=== PATIENT | female | born 1985 | race Caucasian/White ===

== ENCOUNTER 2018-03-28 01:46 | Inpatient (IN) | payer BC ==
[~2018-03-28] VITALS: Ht 152.4 cm; Wt 53.7 kg
[~2018-03-28 01:46] MED LIST: AUGMENTIN PO; BENADRYL25 M2 PO; CEPHALEXIN500 M1 PO; CLEOCIN HCL300 MG PO; LEVAQUIN 5500 MG/TA1 PO; PREDNISONE20 MG PO; PRENATAL VITA1 UDTAB PO; PROAIR HFA0.09 MG/AC IH; PROTONIX 40MG T40 MG PO; SINGULAIR 110 MG/TAB PO; VENTOLIN0.09 MG IH; ZITHROMAX500 M2 PO; ZYRTEC 10MG10 MG PO; ZYRTEC5 MG PO
[2018-03-28] MEDS ORDERED: SOMA 350MG350 MG/TAB PO (02:10)
[2018-03-28 03:10] LABS: BASO % 0.1 % (0.0-2.0); EOS % 0.1 % (0-4.0); GRAN # 16.2 (1.4-6.5); GRAN % 93.2 % (42.2-75.2); HEMATOCRIT 40.7 % (37.0-47.0); HEMOGLOBIN 14.3 g/dl (12.5-16.0); LYMPH # 0.7 (1.2-3.4); LYMPH % 4.2 % (20.0-51.0); MEAN CELL VOLUME 83 fl (80.0-100.0); MEAN CORPUSCULAR HEMOGLOBIN 29 pg (27.0-31.0); MEAN CORPUSCULAR HGB CONC 35 g/dl (33.0-37.0); MEAN PLATELET VOLUME 9.6 fl (7.4-10.4); MONO # 0.4 (0.1-0.6); MONO % 2.2 % (1.7-9.3); PLATELET COUNT 234 K/mm3 (130-400); RED BLOOD COUNT 4.88 M/mm3 (4.10-5.30); REDCELL DISTRIBUTION WIDTH-CV 11.9 % (11.5-14.5)
[2018-03-28 03:23] LABS: ALANINE AMINOTRANSFERASE 30 U/L (9-52); ALBUMIN 4.3 gm/dL (3.5-5.0); ALKALINE PHOSPHATASE 113 U/L (50-136); ANION GAP 15 mmol/L (7-16); AST,SGOT 27 U/L (15-37); BILIRUBIN,TOTAL 0.8 mg/dL (0.0-1.0); BLOOD UREA NITROGEN 14 mg/dL (7-17); C-REACTIVE PROTEIN 1.4 mg/dL (0.0-0.9); CALCIUM 9.1 mg/dL (8.4-10.2); CARBON DIOXIDE 24 mmol/L (22-30); CHLORIDE 103 mmol/L (98-107); CREATININE, serum 0.74 mg/dL (0.52-1.25); GLUCOSE 107 mg/dL (74-106); POTASSIUM 3.7 mmol/L (3.4-5.0); SODIUM 142 mmol/L (137-145); TOTAL PROTEIN 8.7 gm/dL (6.4-8.2)
[2018-03-28 03:38] LABS: TROPONIN-I < 0.012 ng/mL (0.000-0.034)
[2018-03-28 05:18] VITALS: BP 96/57; PULSE 109; TEMP 99.2
[2018-03-28 08:40] VITALS: BP 96/53; PULSE 102; TEMP 98.3
[2018-03-28 12:21] VITALS: BP 107/58; PULSE 117; TEMP 99.2
[2018-03-28 16:42] VITALS: BP 104/62; PULSE 92; TEMP 98.1
[2018-03-28 19:15] VITALS: BP 103/61; PULSE 88; TEMP 99.5
[2018-03-28 23:12] VITALS: BP 101/55; PULSE 99; TEMP 98.9
[2018-03-29 03:23] VITALS: BP 103/53; PULSE 105; TEMP 100.5
[2018-03-29 06:33] LABS: BASO % 0.2 % (0.0-2.0); EOS # 0.1 (0.0-0.7); EOS % 0.3 % (0-4.0); GRAN % 82.8 % (42.2-75.2); MEAN CELL VOLUME 86 fl (80.0-100.0); MEAN CORPUSCULAR HGB CONC 35 g/dl (33.0-37.0); MEAN PLATELET VOLUME 10.5 fl (7.4-10.4); MONO # 0.7 (0.1-0.6); MONO % 4.1 % (1.7-9.3); PLATELET COUNT 186 K/mm3 (130-400); RED BLOOD COUNT 3.37 M/mm3 (4.10-5.30); REDCELL DISTRIBUTION WIDTH-CV 12.3 % (11.5-14.5)
[2018-03-29 06:34] LABS: MEAN CORPUSCULAR HEMOGLOBIN 30 pg (27.0-31.0)
[2018-03-29 06:40] LABS: CALCIUM 7.7 mg/dL (8.4-10.2); CREATININE, serum 0.59 mg/dL (0.52-1.25); POTASSIUM 3.4 mmol/L (3.4-5.0)
[2018-03-29 08:38] VITALS: BP 112/64; PULSE 92; TEMP 98.4
[2018-03-29 12:38] VITALS: BP 108/61; PULSE 105; TEMP 98.6
[2018-03-29 16:50] VITALS: BP 89/60; PULSE 93; TEMP 98.9
[2018-03-29 19:18] VITALS: BP 109/65; PULSE 110; TEMP 99.2
[2018-03-30 00:29] VITALS: BP 108/63; PULSE 88; TEMP 99.1
[2018-03-30 04:41] VITALS: BP 104/54; PULSE 96; TEMP 99.6
[2018-03-30 06:19] LABS: BASO % 0.2 % (0.0-2.0); EOS # 0.1 (0.0-0.7); EOS % 0.5 % (0-4.0); GRAN # 8.7 (1.4-6.5); GRAN % 80.3 % (42.2-75.2); LYMPH # 1.5 (1.2-3.4); LYMPH % 13.4 % (20.0-51.0); MEAN CELL VOLUME 87 fl (80.0-100.0); MEAN CORPUSCULAR HGB CONC 33 g/dl (33.0-37.0); MEAN PLATELET VOLUME 10.8 fl (7.4-10.4); MONO # 0.6 (0.1-0.6); MONO % 5.3 % (1.7-9.3); PLATELET COUNT 217 K/mm3 (130-400); RED BLOOD COUNT 3.68 M/mm3 (4.10-5.30); REDCELL DISTRIBUTION WIDTH-CV 12.4 % (11.5-14.5)
[2018-03-30 06:23] LABS: HEMOGLOBIN 10.7 g/dl (12.5-16.0); MEAN CORPUSCULAR HEMOGLOBIN 29 pg (27.0-31.0)
[2018-03-30 06:34] LABS: CALCIUM 8.4 mg/dL (8.4-10.2); CREATININE, serum 0.63 mg/dL (0.52-1.25); MAGNESIUM 1.8 mg/dL (1.6-2.3); POTASSIUM 3.5 mmol/L (3.4-5.0)
[2018-03-30 08:47] VITALS: BP 102/63; PULSE 93; TEMP 98.6
[2018-03-30 12:28] VITALS: BP 107/73; PULSE 87; TEMP 99
[2018-03-30 16:50] VITALS: BP 112/73; PULSE 88; TEMP 99.4
[2018-03-30 20:18] VITALS: BP 109/72; PULSE 99; TEMP 99
[2018-03-30 20:33] LABS: MYCOPLASMA IGM ANTIBODIES 0.64 (0.00-0.90)
[2018-03-31 00:07] VITALS: BP 109/62; PULSE 84; TEMP 98.3
[2018-03-31 04:38] VITALS: BP 113/75; PULSE 75; TEMP 98.2
[2018-03-31 06:55] LABS: BASO % 0.2 % (0.0-2.0); EOS # 0.1 (0.0-0.7); EOS % 0.8 % (0-4.0); GRAN # 6.9 (1.4-6.5); GRAN % 71.9 % (42.2-75.2); HEMATOCRIT 38.5 % (37.0-47.0); HEMOGLOBIN 13.2 g/dl (12.5-16.0); LYMPH # 2.1 (1.2-3.4); MEAN CELL VOLUME 87 fl (80.0-100.0); MEAN CORPUSCULAR HEMOGLOBIN 30 pg (27.0-31.0); MEAN CORPUSCULAR HGB CONC 34 g/dl (33.0-37.0); MEAN PLATELET VOLUME 10.3 fl (7.4-10.4); MONO # 0.5 (0.1-0.6); MONO % 4.7 % (1.7-9.3); PLATELET COUNT 298 K/mm3 (130-400); RED BLOOD COUNT 4.43 M/mm3 (4.10-5.30); REDCELL DISTRIBUTION WIDTH-CV 12.3 % (11.5-14.5)
[2018-03-31 08:07] VITALS: BP 110/72; PULSE 83; TEMP 98.6
[2018-03-31 11:23] VITALS: BP 109/67; PULSE 85; TEMP 98.8
[2018-03-31] MEDS ORDERED: LEVAQUIN 750MG750 M1 PO ×2 (15:14→15:26)
[2018-03-31] MEDS ORDERED: FLOVENT 220MCG7.9 GM IH (15:17)
== END 2018-03-31 17:05 | disposition home or self-care (01) | DRG 871 ==
LOC: COL.ER 01:46 → MEDICAL 04:24
PROVIDERS: Emergency Medicine; Nurse Practitioner; Nurse Practitioner Family
DX: A40.3 Sepsis due to Streptococcus pneumoniae (principal); J13 Pneumonia due to Streptococcus pneumoniae; J45.40 Moderate persistent asthma, uncomplicated; R09.1 Pleurisy
CPT/HCPCS: 99222-AI; 99231-AI; 99232-AI; 99239; A9284; G0378; J0456; J0696; J1650; J1885; J1956; J2185; J2270; J2405; J3370; J7030; J7050; Q9967

== ENCOUNTER → 2018-05-12 | Outpatient (CLI) | payer BC ==
[~2018-05-12] MED LIST changes: +FLOVENT 220MCG7.9 GM IH; +LEVAQUIN 750MG750 M1 PO; +SOMA 350MG350 MG/TAB PO
== END ==
LOC: COL.RAD 14:22
DX: J18.9 Pneumonia, unspecified organism (principal)

== ENCOUNTER → 2018-05-14 | Outpatient (CLI) | payer BC ==
[2018-05-17 17:32] LABS: IMMUNO G SUBCLASS 3 95.3 mg/dL (()); IMMUNO G SUBCLASS 4 13.1 mg/dL (())
== END ==
LOC: COL.LAB 11:27
PROVIDERS: Internal Medicine Infectious Disease
DX: Z01.89 Encounter for other specified special examinations (principal)

== ENCOUNTER → 2018-07-19 | Outpatient (CLI) | payer BC ==
[2018-07-19 17:03] LABS: BASO % 0.6 % (0.0-2.0); EOS # 0.1 (0.0-0.7); EOS % 1.8 % (0-4.0); GRAN % 59.5 % (42.2-75.2); HEMATOCRIT 42.9 % (37.0-47.0); HEMOGLOBIN 14.8 g/dl (12.5-16.0); LYMPH # 1.5 (1.2-3.4); LYMPH % 29.5 % (20.0-51.0); MEAN CELL VOLUME 86 fl (80.0-100.0); MEAN CORPUSCULAR HEMOGLOBIN 30 pg (27.0-31.0); MEAN CORPUSCULAR HGB CONC 35 g/dl (33.0-37.0); MONO # 0.4 (0.1-0.6); MONO % 8.4 % (1.7-9.3); PLATELET COUNT 247 K/mm3 (130-400); REDCELL DISTRIBUTION WIDTH-CV 12.5 % (11.5-14.5)
[2018-07-19 17:18] LABS: ALBUMIN 4.2 gm/dL (3.5-5.0); BILIRUBIN,TOTAL 0.8 mg/dL (0.0-1.0); CALCIUM 8.8 mg/dL (8.4-10.2); CREATININE, serum 0.72 mg/dL (0.52-1.25); POTASSIUM 3.8 mmol/L (3.4-5.0); TOTAL PROTEIN 7.4 gm/dL (6.4-8.2)
== END ==
LOC: COL.LAB 16:11
PROVIDERS: Internal Medicine Infectious Disease
DX: A31.0 Pulmonary mycobacterial infection (principal)

== ENCOUNTER → 2018-07-22 | Outpatient (CLI) | payer BC | LOC: MC.RAD 10:30 | DX: N64.4 Mastodynia (principal); N63.31 Unspecified lump in axillary tail of the right breast ==

== ENCOUNTER → 2019-03-18 | Outpatient (CLI) | payer BC ==
[2019-03-18 16:50] LABS: BASO % 0.4 % (0.0-2.0); EOS # 0.1 (0.0-0.7); EOS % 1.5 % (0-4.0); GRAN % 56.9 % (42.2-75.2); HEMATOCRIT 42.3 % (37.0-47.0); LYMPH # 1.8 (1.2-3.4); LYMPH % 34.6 % (20.0-51.0); MEAN CELL VOLUME 86 fl (80.0-100.0); MEAN CORPUSCULAR HEMOGLOBIN 31 pg (27.0-31.0); MEAN CORPUSCULAR HGB CONC 36 g/dl (33.0-37.0); MEAN PLATELET VOLUME 9.5 fl (7.4-10.4); MONO # 0.3 (0.1-0.6); MONO % 6.6 % (1.7-9.3); PLATELET COUNT 211 K/mm3 (130-400); REDCELL DISTRIBUTION WIDTH-CV 12.1 % (11.5-14.5)
[2019-03-18 16:58] LABS: ALBUMIN 4.5 gm/dL (3.5-5.0); BILIRUBIN,TOTAL 0.6 mg/dL (0.0-1.0); CALCIUM 9.1 mg/dL (8.4-10.2); CREATININE, serum 0.71 (0.52-1.25); POTASSIUM 4.4 mmol/L (3.4-5.0); TOTAL PROTEIN 7.6 gm/dL (6.4-8.2)
== END ==
LOC: COL.LAB 16:08
PROVIDERS: Nurse Practitioner
DX: A31.0 Pulmonary mycobacterial infection (principal); J47.9 Bronchiectasis, uncomplicated

== ENCOUNTER → 2019-04-14 | Outpatient (CLI) | payer BC | LOC: COL.LAB 07:12 | DX: A31.9 Mycobacterial infection, unspecified (principal); J47.9 Bronchiectasis, uncomplicated ==

== ENCOUNTER → 2019-06-09 | Outpatient (CLI) | payer BC | LOC: ZCOL.LAB 12:27 | DX: J47.9 Bronchiectasis, uncomplicated (principal); A31.9 Mycobacterial infection, unspecified; Z53.8 Procedure and treatment not carried out for other reasons ==

== ENCOUNTER 2019-07-30 15:04 | Emergency (ER) | payer BC ==
[~2019-07-30] VITALS: Ht 152.4 cm; Wt 50.0 kg
[2019-07-30] MEDS ORDERED: BIAXIN 500MG T500 MG PO (15:10)
[2019-07-30] MEDS ORDERED: ETHAMBUTOL HYD400 MG (15:10)
[2019-07-30] MEDS ORDERED: RIFADIN300 MG (15:10)
[2019-07-30 17:19] LABS: BASO % 0.4 % (0.0-2.0); EOS # 0.1 (0.0-0.7); EOS % 1.1 % (0-4.0); GRAN % 70.3 % (42.2-75.2); HEMATOCRIT 41.4 % (37.0-47.0); HEMOGLOBIN 14.5 g/dl (12.5-16.0); LYMPH # 1.4 (1.2-3.4); LYMPH % 18.9 % (20.0-51.0); MEAN CELL VOLUME 88 fl (80.0-100.0); MEAN CORPUSCULAR HEMOGLOBIN 31 pg (27.0-31.0); MEAN CORPUSCULAR HGB CONC 35 g/dl (33.0-37.0); MEAN PLATELET VOLUME 9.5 fl (7.4-10.4); MONO # 0.6 (0.1-0.6); PLATELET COUNT 209 K/mm3 (130-400); RED BLOOD COUNT 4.71 M/mm3 (4.10-5.30); REDCELL DISTRIBUTION WIDTH-CV 11.9 % (11.5-14.5)
[2019-07-30 17:32] LABS: ALBUMIN 4.3 gm/dL (3.5-5.0); BILIRUBIN,TOTAL 0.5 mg/dL (0.0-1.0); CALCIUM 8.8 mg/dL (8.4-10.2); CREATININE, serum 0.9 (0.52-1.25); POTASSIUM 3.7 mmol/L (3.4-5.0); TOTAL PROTEIN 7.4 gm/dL (6.4-8.2)
[2019-07-30] MEDS ORDERED: AUGMENTIN XR 101 TER PO (19:11)
[2019-07-30] MEDS ORDERED: AMOXICILLIN 8751 TAB PO (19:16)
[2019-07-30 19:50] VITALS: BP 119/67; PULSE 102; TEMP 97.9
== END 2019-07-30 19:57 | disposition home or self-care (01) ==
LOC: COL.ER 15:04
PROVIDERS: Physician Assistant
DX: J18.9 Pneumonia, unspecified organism (principal)
CPT/HCPCS: J7030

== ENCOUNTER 2019-08-02 11:53 | Inpatient (IN) | payer BC ==
[~2019-08-02] VITALS: Ht 152.4 cm; Wt 51.8 kg
[~2019-08-02 11:53] MED LIST changes: +AMOXICILLIN 8751 TAB PO; +AUGMENTIN XR 101 TER PO; +BIAXIN 500MG T500 MG PO; +ETHAMBUTOL HYD400 MG; +RIFADIN300 MG
[2019-08-02 12:38] LABS: BASO % 0.5 % (0.0-2.0); EOS # 0.1 (0.0-0.7); EOS % 1.1 % (0-4.0); GRAN # 2.7 (1.4-6.5); GRAN % 61.9 % (42.2-75.2); HEMATOCRIT 44.2 % (37.0-47.0); HEMOGLOBIN 15.4 g/dl (12.5-16.0); LYMPH # 1.1 (1.2-3.4); LYMPH % 25.1 % (20.0-51.0); MEAN CELL VOLUME 87 fl (80.0-100.0); MEAN CORPUSCULAR HEMOGLOBIN 30 pg (27.0-31.0); MEAN CORPUSCULAR HGB CONC 35 g/dl (33.0-37.0); MEAN PLATELET VOLUME 9.4 fl (7.4-10.4); MONO # 0.5 (0.1-0.6); MONO % 11.2 % (1.7-9.3); PLATELET COUNT 225 K/mm3 (130-400); RED BLOOD COUNT 5.09 M/mm3 (4.10-5.30); REDCELL DISTRIBUTION WIDTH-CV 11.9 % (11.5-14.5)
[2019-08-02 12:51] LABS: ALBUMIN 4.6 gm/dL (3.5-5.0); BILIRUBIN,TOTAL 0.8 mg/dL (0.0-1.0); C-REACTIVE PROTEIN 1.6 mg/dL (0.0-0.9); CALCIUM 9.3 mg/dL (8.4-10.2); CREATININE, serum 0.6 (0.52-1.25); POTASSIUM 3.9 mmol/L (3.4-5.0); TOTAL PROTEIN 7.9 gm/dL (6.4-8.2)
--- NOTE | 2019-08-02 17:35 | NUR ---
Vancomycin Initial Dosing Pharmacy Note Ordering provider: Marcelo Boss MD Indication/duration: MAC Relevant comorbidities: CYSTIC FIBROSIS LABS: WBC 4.4, SCr.0.6, CrCl. >80 Recommendation: Loading dose: Vancomycin 1 g Maintenance dose: Vancomycin 1 gram every 8 hours Trough goal: 15-20 ug/mL, trough 08/04/19 @ 0900
[2019-08-02 19:11] VITALS: BP 115/73; PULSE 83; TEMP 98.1
[2019-08-03] VITALS (7 sets, daily range): BP systolic 97–113; BP diastolic 50–68; PULSE 68–96; TEMP 97.8–98.5
[2019-08-03 07:05] LABS: BASO % 0.2 % (0.0-2.0); GRAN # 3.8 (1.4-6.5); GRAN % 85.4 % (42.2-75.2); HEMATOCRIT 38.3 % (37.0-47.0); LYMPH # 0.5 (1.2-3.4); LYMPH % 11.8 % (20.0-51.0); MEAN CELL VOLUME 87 fl (80.0-100.0); MEAN CORPUSCULAR HEMOGLOBIN 30 pg (27.0-31.0); MEAN CORPUSCULAR HGB CONC 35 g/dl (33.0-37.0); MEAN PLATELET VOLUME 9.8 fl (7.4-10.4); MONO # 0.1 (0.1-0.6); MONO % 2.4 % (1.7-9.3); PLATELET COUNT 203 K/mm3 (130-400); RED BLOOD COUNT 4.39 M/mm3 (4.10-5.30); REDCELL DISTRIBUTION WIDTH-CV 11.9 % (11.5-14.5)
--- NOTE | 2019-08-03 07:15 | NUR ---
Received report. Patient is sitting up in bed, her kids and family are at bedside. She denies pain or shortness of breath at this time. She finished supper and noted to eat 100%. Head of bed is elevated. Respirations are even and nonlabored. Personal items and call ight are within reach.
[2019-08-03 07:18] LABS: HEMOGLOBIN 13.2 g/dl (12.5-16.0)
[2019-08-03 07:19] LABS: CALCIUM 8.8 mg/dL (8.4-10.2); CREATININE, serum 0.53 (0.52-1.25)
--- NOTE | 2019-08-03 07:50 | NUR ---
This pt comes to the floor to room 352 from ER. Tele on with Reg SR. Refused Lovenox this shift and she does not want to take it. Brought her own meds and did take her own Biaxin shortly after arriving in her room. Up ad adrien. Sats are upper 90's on room air. Lung sounds are clear in the upper lobes and diminished in the bases with a few crackles. No edema noted. Pt reports to me that she had a bad reaction to the Vanco she received in ER. Dr Hassan notified last night when Vanco was do and he ordered to stop the Vanco. Does was not given this shift. Call light in reach.
--- NOTE | 2019-08-03 14:52 | NUR ---
SW met with patient to disucss discharge planning. Patient lives at home with her . Patient's PCP is JOE Melendez in [place], [place]. Patient obtains medications from [facility] pharmacy. Patient is independent with all ADLs and does not use ay DME or home health. Patient does not have any advanced directives and is not interested in completing any at this time. SW does not anticipate any discharge needs.
--- NOTE | 2019-08-03 18:00 | NUR ---
PT HAD UNEVENTFUL DAY. RECIEVING MEDS ORDERED. NO C/O PAIN. HAS HAD COMPANY OFF AND ON THROUGHOUT THE DAY. STATED SHE WAS UNABLE TO SLEEP MUCH OVERNIGHT, EXPLAINED TO PT THAT THE SOLUMEDROL AND BREATHING TREATMENTS COULD BE THE CAUSE. NO 0THER ISSUES OR CONSERNS VOICED. PLEASANT AND COOPERATIVE WITH CARES. SPUTUM CULTURE OBTAINED THIS SHIFT.
--- NOTE | 2019-08-04 04:27 | NUR ---
Report received from JOSEFINA Xie. Patient resting in bed. IV antibiotics running about 1 hour behind schedule due to not being able to be ran at the same time. Denies any further needs at this time. Call light within reach.
[2019-08-04 04:41] VITALS: BP 110/63; PULSE 78; TEMP 98.1
--- NOTE | 2019-08-04 05:57 | NUR ---
Patient reported severe pain in veins in left AC IV site. Examined, not red or inflitrated. Due to receiving vancomycin and zosyn, new IV started in right forearm by JOSEFINA Gonzalez. Patient tolerated well, but still reported that it hurt. IV zosyn restarted in new IV site.
--- NOTE | 2019-08-04 06:49 | NUR ---
Report given to JOSEFINA Alvarez
[2019-08-04 06:55] LABS: HEMATOCRIT 40.9 % (37.0-47.0); HEMOGLOBIN 14.1 g/dl (12.5-16.0); MEAN CELL VOLUME 88 fl (80.0-100.0); MEAN CORPUSCULAR HEMOGLOBIN 30 pg (27.0-31.0); MEAN CORPUSCULAR HGB CONC 35 g/dl (33.0-37.0); MEAN PLATELET VOLUME 9.7 fl (7.4-10.4); PLATELET COUNT 236 K/mm3 (130-400); RED BLOOD COUNT 4.64 M/mm3 (4.10-5.30)
[2019-08-04 07:11] LABS: CALCIUM 9.4 mg/dL (8.4-10.2); CREATININE, serum 0.5 (0.52-1.25); POTASSIUM 4.2 mmol/L (3.4-5.0)
--- NOTE | 2019-08-04 07:14 | NUR ---
HR 79 BEFORE BREATHING TX 109 AFTER BREATHING TX
[2019-08-04 07:39] LABS: LYMPHOCYTE 6 % (20.0-51.0); NEUTROPHILS 91 % (42.0-75.2); PLATELET ESTIMATE NORMAL (NORMAL)
[2019-08-04 08:55] VITALS: BP 108/63; PULSE 95; TEMP 98.5
--- NOTE | 2019-08-04 10:00 | NUR ---
PT HAD LOST IV SITE TO RT FORARM THAT WAS STARTED OVERNIGHT. WAS LEAKING AND VERY SENSITVIE TO TOUCH. PREVIOUS IV TO LT AC INTACT, PT STATED THAT IT WAS VERY PAINFUL LAST NIGHT AND WANTED TO CHECK AND SEE IF IT HAD FELT BETTER TODAY TO USE BEFORE REMOVING IT. THIS NURSE STARTED TO JUST BARLEY FLUSH IV AND PT WAS IN ALOT OF PAIN AND YELLED "OUCH OUCH" AND STATED THAT IT WAS TO INTOLERABLE. THIS NURSE REMOVED THAT IV SITE. ASSESSED PT VEINS TO RESTART IV, WAS UNABLE TO SEE ANYTHING THAT LOOKED GOOD TO ACCESS. THIS NURSE WILL CHECK WITH HOPSITALIST AND SEE THE POC FOR TODAY AND SEE IF PT WILL NEED IV SITE RESTARTED.
--- NOTE | 2019-08-04 10:15 | NUR ---
THIS NURSE CHECKED WITH HOSPITALIST TO SEE IF IV WAS OK TO LEAVE OUT. PROVIDER STATED TO CALL DR. CESAR INFECTIOUS DISEASE DOC AND CHECK WITH HIM. THIS NURSE CALLED DR. CESAR. PROVIDER WAS GIVEN AN UPDATE AND STATED THAT HE WOULD SWITCH PT TO PO ABX. THIS NURSE INFORMED HOSPITALIST OF THIS.
[2019-08-04] MEDS ORDERED: LEVAQUIN 5500 MG/TA1 PO (11:45)
[2019-08-04] MEDS ORDERED: PREDNISONE10 MG PO (11:47)
--- NOTE | 2019-08-04 12:00 | NUR ---
PT QUESTIONED THIS NURSE ABOUT DISCHARGE, STATED THAT SHE WAS TOLD BUT DR MURPHY THAT SHE SHOULD STAY ANOTHER NIGHT, GET A PICC LINE AND THEN DO OUT PT IV ABX. PT WAS ALREADY INFORMED BY THE HOSPITALIST THAT SHE SHOULD BE ABLE TO DC AND TAKE ABX PO. THIS NURSE WILL CLARIFY THIS WITH HOSPITALIST FOR PT.
[2019-08-04 12:35] VITALS: BP 108/58; PULSE 107; TEMP 98.5
--- NOTE | 2019-08-04 13:15 | NUR ---
THIS NURSE CONFIRMED WITH HOSPITALIST THAT PT WAS TO STILL DISCHARGE TODAY AND START ON PO ABX. THIS NURSE PROVIDED PT WITH DOSE OF IV ABX. HOSPITALIST STATED THAT THEY WOULD BE INTO CLAIRIFY THIS WITH PT AND ANSWER ANY QUESTIONS FOR HER.
--- NOTE | 2019-08-04 14:30 | NUR ---
WENT OVER PT DISCHARGE INFORMATION, SIGANTURES OBTAINED. NO QUESTIONS VOICED.
--- NOTE | 2019-08-04 15:45 | NUR ---
PT EXITING FACILITY AT THIS TIME. PT HAD HER FAMILY ASSIST HER WITH TAKING HER BELONGINGS OUT TO VEHICLE, DENIED NEED FOR ESCORT OUT OF FACILITY.
== END 2019-08-04 15:45 | disposition home or self-care (01) | DRG 194 ==
LOC: COL.ER 11:53 → MEDICAL 14:16
PROVIDERS: Emergency Medicine; Physician Assistant; ADMIT Student in an Organized Health Care Education/Training Program
DX: J18.9 Pneumonia, unspecified organism (principal); J45.901 Unspecified asthma with (acute) exacerbation; A31.2 Disseminated mycobacterium avium-intracellulare complex (DMAC); E84.9 Cystic fibrosis, unspecified; J47.1 Bronchiectasis with (acute) exacerbation; D72.819 Decreased white blood cell count, unspecified; J47.9 Bronchiectasis, uncomplicated; R00.0 Tachycardia, unspecified
CPT/HCPCS: 99222; 99222-AI; 99232-AI; 99233-AI; 99239; J2543; J2920; J3370; J7030; J7050; Q9967

== ENCOUNTER → 2019-08-18 | Outpatient (CLI) | payer BC ==
[~2019-08-18] MED LIST changes: +PREDNISONE10 MG PO
[2019-08-18 13:35] LABS: BASO % 0.2 % (0.0-2.0); EOS # 0.1 (0.0-0.7); EOS % 0.5 % (0-4.0); GRAN # 7.7 (1.4-6.5); GRAN % 77.3 % (42.2-75.2); HEMATOCRIT 44.1 % (37.0-47.0); HEMOGLOBIN 15.3 g/dl (12.5-16.0); LYMPH # 1.5 (1.2-3.4); LYMPH % 15.2 % (20.0-51.0); MEAN CELL VOLUME 88 fl (80.0-100.0); MEAN CORPUSCULAR HEMOGLOBIN 31 pg (27.0-31.0); MEAN CORPUSCULAR HGB CONC 35 g/dl (33.0-37.0); MEAN PLATELET VOLUME 9.6 fl (7.4-10.4); MONO # 0.7 (0.1-0.6); MONO % 6.5 % (1.7-9.3); PLATELET COUNT 218 K/mm3 (130-400); RED BLOOD COUNT 5.01 M/mm3 (4.10-5.30); REDCELL DISTRIBUTION WIDTH-CV 12.3 % (11.5-14.5)
[2019-08-18 14:32] LABS: ERYTHROCYTE SEDIMENTATION RATE 1 mm/hr (0-20)
== END ==
LOC: COL.RAD 12:24
PROVIDERS: Nurse Practitioner
DX: J45.909 Unspecified asthma, uncomplicated (principal); J47.9 Bronchiectasis, uncomplicated

== ENCOUNTER → 2019-08-29 | Outpatient (CLI) | payer BC | LOC: COL.LAB 16:29 | DX: R00.0 Tachycardia, unspecified (principal) ==

== ENCOUNTER → 2019-10-21 | Outpatient (CLI) | payer BC ==
[2019-10-22 01:33] LABS: INR 0.9 (0.8-3.0); PROTHROMBIN TIME 10.8 SECONDS (9.7-12.8)
== END ==
LOC: COL.LAB 14:59
DX: E84.0 Cystic fibrosis with pulmonary manifestations (principal)

== ENCOUNTER 2019-11-17 15:04 | Emergency (ER) | payer BC ==
[~2019-11-17] VITALS: Ht 152.4 cm; Wt 50.0 kg
[2019-11-17 15:11] VITALS: TEMP 98.2
[2019-11-17 16:14] LABS: BASO % 0.6 % (0.0-2.0); EOS # 0.1 (0.0-0.7); EOS % 1.8 % (0-4.0); GRAN # 4.2 (1.4-6.5); GRAN % 66.9 % (42.2-75.2); HEMATOCRIT 42.4 % (37.0-47.0); LYMPH # 1.4 (1.2-3.4); LYMPH % 22.8 % (20.0-51.0); MEAN CELL VOLUME 86 fl (80.0-100.0); MEAN CORPUSCULAR HEMOGLOBIN 30 pg (27.0-31.0); MEAN CORPUSCULAR HGB CONC 35 g/dl (33.0-37.0); MEAN PLATELET VOLUME 9.3 fl (7.4-10.4); MONO # 0.5 (0.1-0.6); MONO % 7.7 % (1.7-9.3); PLATELET COUNT 305 K/mm3 (130-400); RED BLOOD COUNT 4.93 M/mm3 (4.10-5.30); REDCELL DISTRIBUTION WIDTH-CV 11.5 % (11.5-14.5)
[2019-11-17 16:27] LABS: ALBUMIN 4.6 gm/dL (3.5-5.0); BILIRUBIN,TOTAL 0.5 mg/dL (0.0-1.0); C-REACTIVE PROTEIN 1.4 mg/dL (0.0-0.9); CALCIUM 9.1 mg/dL (8.4-10.2); CREATININE, serum 0.68 (0.52-1.25); POTASSIUM 3.6 mmol/L (3.4-5.0)
[2019-11-17 16:39] LABS: ERYTHROCYTE SEDIMENTATION RATE 20 mm/hr (0-20)
[2019-11-17 18:00] VITALS: BP 122/84; PULSE 96
== END 2019-11-17 18:00 | disposition home or self-care (01) ==
LOC: COL.ER 15:04
PROVIDERS: Physician Assistant
DX: J98.4 Other disorders of lung (principal); Z96.22 Myringotomy tube(s) status
CPT/HCPCS: J7030; Q9967

== ENCOUNTER → 2019-11-17 | Outpatient (CLI) | payer BC | LOC: ZCOL.LAB 17:33 | DX: J47.9 Bronchiectasis, uncomplicated (principal); J45.909 Unspecified asthma, uncomplicated ==

== ENCOUNTER 2019-12-04 04:39 | Emergency (ER) | payer BC ==
[~2019-12-04] VITALS: Ht 152.4 cm; Wt 50.0 kg
[2019-12-04 05:52] LABS: BASO % 0.3 % (0.0-2.0); EOS % 0.6 % (0-4.0); GRAN # 2.3 (1.4-6.5); GRAN % 70.6 % (42.2-75.2); HEMATOCRIT 38.7 % (37.0-47.0); HEMOGLOBIN 13.5 g/dl (12.5-16.0); LYMPH # 0.5 (1.2-3.4); MEAN CELL VOLUME 87 fl (80.0-100.0); MEAN CORPUSCULAR HEMOGLOBIN 30 pg (27.0-31.0); MEAN CORPUSCULAR HGB CONC 35 g/dl (33.0-37.0); MEAN PLATELET VOLUME 9.6 fl (7.4-10.4); MONO # 0.4 (0.1-0.6); MONO % 11.9 % (1.7-9.3); PLATELET COUNT 192 K/mm3 (130-400); RED BLOOD COUNT 4.45 M/mm3 (4.10-5.30); REDCELL DISTRIBUTION WIDTH-CV 11.9 % (11.5-14.5)
[2019-12-04 06:00] LABS: BILIRUBIN,TOTAL 0.3 mg/dL (0.0-1.0); CALCIUM 8.8 mg/dL (8.4-10.2); CREATININE, serum 0.58 (0.52-1.25); POTASSIUM 3.5 mmol/L (3.4-5.0); TOTAL PROTEIN 7.1 gm/dL (6.4-8.2)
[2019-12-04] MEDS ORDERED: LEVAQUIN 5500 MG/TA1 PO (08:12)
[2019-12-04 08:14] VITALS: BP 118/86; TEMP 98
[2019-12-04 08:50] VITALS: PULSE 97
== END 2019-12-04 08:50 | disposition home or self-care (01) ==
LOC: COL.ER 04:39
PROVIDERS: Emergency Medicine
DX: E84.9 Cystic fibrosis, unspecified (principal); J11.1 Influenza due to unidentified influenza virus with other respiratory manifestations; J45.909 Unspecified asthma, uncomplicated
CPT/HCPCS: J2543; J7030

== ENCOUNTER → 2020-05-03 | Outpatient (CLI) | payer BC ==
[2020-05-03 13:52] LABS: BASO % 0.3 % (0.0-2.0); EOS # 0.1 (0.0-0.7); EOS % 0.6 % (0-4.0); GRAN # 6.9 (1.4-6.5); GRAN % 73.1 % (42.2-75.2); HEMATOCRIT 41.8 % (37.0-47.0); HEMOGLOBIN 14.3 g/dl (12.5-16.0); LYMPH # 1.8 (1.2-3.4); LYMPH % 19.3 % (20.0-51.0); MEAN CELL VOLUME 87 fl (80.0-100.0); MEAN CORPUSCULAR HEMOGLOBIN 30 pg (27.0-31.0); MEAN CORPUSCULAR HGB CONC 34 g/dl (33.0-37.0); MEAN PLATELET VOLUME 9.6 fl (7.4-10.4); MONO # 0.6 (0.1-0.6); MONO % 6.5 % (1.7-9.3); PLATELET COUNT 283 K/mm3 (130-400); REDCELL DISTRIBUTION WIDTH-CV 11.8 % (11.5-14.5)
[2020-05-03 14:04] LABS: ALBUMIN 4.6 gm/dL (3.5-5.0); BILIRUBIN,TOTAL 0.7 mg/dL (0.0-1.0); C-REACTIVE PROTEIN 4.8 mg/dL (0.0-0.9); CALCIUM 9.6 mg/dL (8.4-10.2); CREATININE, serum 0.55 (0.52-1.25); POTASSIUM 3.6 mmol/L (3.4-5.0); TOTAL PROTEIN 8.3 gm/dL (6.4-8.2)
[2020-05-03 14:17] LABS: ERYTHROCYTE SEDIMENTATION RATE 21 mm/hr (0-20)
== END ==
LOC: COL.RAD 13:15
PROVIDERS: Internal Medicine Infectious Disease
DX: J47.9 Bronchiectasis, uncomplicated (principal); R09.1 Pleurisy; Z86.19 Personal history of other infectious and parasitic diseases

== ENCOUNTER → 2020-06-12 | Outpatient (CLI) | payer BC ==
[2020-06-12 10:16] LABS: BASO # 0.1 (0.0-0.2); BASO % 0.3 % (0.0-2.0); EOS # 0.1 (0.0-0.7); EOS % 0.3 % (0-4.0); GRAN # 14.8 (1.4-6.5); GRAN % 78.9 % (42.2-75.2); HEMATOCRIT 44.3 % (37.0-47.0); HEMOGLOBIN 14.8 g/dl (12.5-16.0); LYMPH # 2.3 (1.2-3.4); LYMPH % 12.3 % (20.0-51.0); MEAN CELL VOLUME 87 fl (80.0-100.0); MEAN CORPUSCULAR HEMOGLOBIN 29 pg (27.0-31.0); MEAN CORPUSCULAR HGB CONC 33 g/dl (33.0-37.0); MEAN PLATELET VOLUME 9.5 fl (7.4-10.4); MONO # 1.5 (0.1-0.6); MONO % 7.7 % (1.7-9.3); PLATELET COUNT 337 K/mm3 (130-400); RED BLOOD COUNT 5.11 M/mm3 (4.10-5.30); REDCELL DISTRIBUTION WIDTH-CV 11.9 % (11.5-14.5)
== END ==
LOC: COL.LAB 09:41
PROVIDERS: Pediatrics
DX: R09.89 Other specified symptoms and signs involving the circulatory and respiratory systems (principal); R05 Cough; R09.3 Abnormal sputum

== ENCOUNTER → 2020-08-17 | Outpatient (CLI) | payer BC ==
[2020-08-17 10:15] LABS: BASO # 0.1 (0.0-0.2); BASO % 0.3 % (0.0-2.0); EOS # 0.1 (0.0-0.7); EOS % 0.6 % (0-4.0); GRAN # 12.1 (1.4-6.5); GRAN % 70.5 % (42.2-75.2); HEMATOCRIT 41.7 % (37.0-47.0); LYMPH # 3.5 (1.2-3.4); LYMPH % 20.6 % (20.0-51.0); MEAN CELL VOLUME 86 fl (80.0-100.0); MEAN CORPUSCULAR HEMOGLOBIN 29 pg (27.0-31.0); MEAN CORPUSCULAR HGB CONC 34 g/dl (33.0-37.0); MEAN PLATELET VOLUME 9.3 fl (7.4-10.4); MONO # 1.3 (0.1-0.6); MONO % 7.5 % (1.7-9.3); PLATELET COUNT 397 K/mm3 (130-400); RED BLOOD COUNT 4.85 M/mm3 (4.10-5.30); REDCELL DISTRIBUTION WIDTH-CV 12.3 % (11.5-14.5)
[2020-08-17 10:29] LABS: ALBUMIN 4.3 gm/dL (3.5-5.0); BILIRUBIN,TOTAL 0.9 mg/dL (0.0-1.0); CALCIUM 9.4 mg/dL (8.4-10.2); CREATININE, serum 0.69 (0.52-1.25); POTASSIUM 3.4 mmol/L (3.4-5.0); TOTAL PROTEIN 7.9 gm/dL (6.4-8.2)
== END ==
LOC: COL.LAB 09:31
PROVIDERS: Internal Medicine Infectious Disease
DX: J20.9 Acute bronchitis, unspecified (principal); J18.1 Lobar pneumonia, unspecified organism

== ENCOUNTER → 2020-08-21 | Outpatient (CLI) | payer BC ==
[2020-08-21 11:46] LABS: BASO # 0.1 (0.0-0.2); BASO % 0.6 % (0.0-2.0); EOS # 0.2 (0.0-0.7); EOS % 1.5 % (0-4.0); GRAN % 70.4 % (42.2-75.2); HEMATOCRIT 42.5 % (37.0-47.0); HEMOGLOBIN 14.4 g/dl (12.5-16.0); LYMPH % 19.9 % (20.0-51.0); MEAN CELL VOLUME 85 fl (80.0-100.0); MEAN CORPUSCULAR HEMOGLOBIN 29 pg (27.0-31.0); MEAN CORPUSCULAR HGB CONC 34 g/dl (33.0-37.0); MEAN PLATELET VOLUME 9.2 fl (7.4-10.4); MONO # 0.7 (0.1-0.6); MONO % 7.3 % (1.7-9.3); PLATELET COUNT 375 K/mm3 (130-400); RED BLOOD COUNT 4.98 M/mm3 (4.10-5.30); REDCELL DISTRIBUTION WIDTH-CV 12.2 % (11.5-14.5)
[2020-08-21 12:02] LABS: ALBUMIN 4.4 gm/dL (3.5-5.0); BILIRUBIN,TOTAL 0.7 mg/dL (0.0-1.0); CALCIUM 9.5 mg/dL (8.4-10.2); CREATININE, serum 0.66 (0.52-1.25)
== END ==
LOC: ZCOL.LAB 11:07 → COL.LAB 11:12
PROVIDERS: Nurse Practitioner
DX: J20.9 Acute bronchitis, unspecified (principal)

== ENCOUNTER → 2020-09-04 | Outpatient (CLI) | payer BC ==
[2020-09-04 16:36] LABS: BASO % 0.5 % (0.0-2.0); EOS # 0.1 (0.0-0.7); EOS % 1.7 % (0-4.0); GRAN # 2.9 (1.4-6.5); GRAN % 46.5 % (42.2-75.2); HEMATOCRIT 44.6 % (37.0-47.0); HEMOGLOBIN 14.7 g/dl (12.5-16.0); LYMPH # 2.6 (1.2-3.4); LYMPH % 40.7 % (20.0-51.0); MEAN CELL VOLUME 86 fl (80.0-100.0); MEAN CORPUSCULAR HEMOGLOBIN 28 pg (27.0-31.0); MEAN CORPUSCULAR HGB CONC 33 g/dl (33.0-37.0); MONO # 0.7 (0.1-0.6); MONO % 10.3 % (1.7-9.3); PLATELET COUNT 241 K/mm3 (130-400); RED BLOOD COUNT 5.17 M/mm3 (4.10-5.30); REDCELL DISTRIBUTION WIDTH-CV 12.2 % (11.5-14.5)
[2020-09-04 16:57] LABS: ERYTHROCYTE SEDIMENTATION RATE 18 mm/hr (0-20)
[2020-09-04 17:27] LABS: ALBUMIN 4.1 gm/dL (3.5-5.0); BILIRUBIN,TOTAL 0.4 mg/dL (0.0-1.0); CALCIUM 8.7 mg/dL (8.4-10.2); CREATININE, serum 0.68 (0.52-1.25); POTASSIUM 3.5 mmol/L (3.4-5.0); TOTAL PROTEIN 7.4 gm/dL (6.4-8.2)
== END ==
LOC: COL.LAB 15:31 → COL.RAD 15:35 → COL.LAB 15:35
PROVIDERS: Internal Medicine Infectious Disease
DX: J47.9 Bronchiectasis, uncomplicated (principal); J18.9 Pneumonia, unspecified organism

== ENCOUNTER 2020-09-26 15:00 | Outpatient (RCR) | payer BC ==
[2020-09-07 09:48] VITALS: BP 106/71; PULSE 74; TEMP 97.6
[2020-09-07 20:28] VITALS: BP 115/79; PULSE 96; TEMP 98.4
[2020-09-08 08:27] VITALS: BP 103/71; PULSE 84; TEMP 98.2
[2020-09-09 08:33] VITALS: BP 105/73; PULSE 95; TEMP 98.3
[2020-09-10 11:04] VITALS: BP 115/83; PULSE 96; TEMP 98.2
[2020-09-10 11:47] LABS: BASO % 0.2 % (0.0-2.0); EOS # 0.1 (0.0-0.7); EOS % 1.1 % (0-4.0); GRAN # 5.7 (1.4-6.5); GRAN % 63.2 % (42.2-75.2); HEMATOCRIT 39.7 % (37.0-47.0); HEMOGLOBIN 13.5 g/dl (12.5-16.0); LYMPH # 2.4 (1.2-3.4); MEAN CELL VOLUME 83 fl (80.0-100.0); MEAN CORPUSCULAR HEMOGLOBIN 28 pg (27.0-31.0); MEAN CORPUSCULAR HGB CONC 34 g/dl (33.0-37.0); MEAN PLATELET VOLUME 9.4 fl (7.4-10.4); MONO # 0.7 (0.1-0.6); MONO % 8.1 % (1.7-9.3); PLATELET COUNT 317 K/mm3 (130-400); RED BLOOD COUNT 4.79 M/mm3 (4.10-5.30)
[2020-09-10 12:04] LABS: ALBUMIN 3.9 gm/dL (3.5-5.0); BILIRUBIN,TOTAL 0.5 mg/dL (0.0-1.0); C-REACTIVE PROTEIN 1.2 mg/dL (0.0-0.9); CALCIUM 9.1 mg/dL (8.4-10.2); CREATININE, serum 0.54 (0.52-1.25); POTASSIUM 3.9 mmol/L (3.4-5.0); TOTAL PROTEIN 7.1 gm/dL (6.4-8.2)
[2020-09-10 12:34] LABS: ERYTHROCYTE SEDIMENTATION RATE 23 mm/hr (0-20)
[2020-09-17 09:19] VITALS: BP 108/74; PULSE 103; TEMP 97.3
[2020-09-17 09:23] LABS: BASO % 0.2 % (0.0-2.0); EOS # 0.1 (0.0-0.7); EOS % 1.3 % (0-4.0); GRAN # 5.5 (1.4-6.5); GRAN % 66.7 % (42.2-75.2); HEMATOCRIT 38.8 % (37.0-47.0); HEMOGLOBIN 13.1 g/dl (12.5-16.0); LYMPH # 1.9 (1.2-3.4); LYMPH % 23.4 % (20.0-51.0); MEAN CELL VOLUME 84 fl (80.0-100.0); MEAN CORPUSCULAR HEMOGLOBIN 28 pg (27.0-31.0); MEAN CORPUSCULAR HGB CONC 34 g/dl (33.0-37.0); MEAN PLATELET VOLUME 9.6 fl (7.4-10.4); MONO # 0.7 (0.1-0.6); MONO % 8.3 % (1.7-9.3); PLATELET COUNT 302 K/mm3 (130-400); RED BLOOD COUNT 4.63 M/mm3 (4.10-5.30); REDCELL DISTRIBUTION WIDTH-CV 12.3 % (11.5-14.5)
[2020-09-17 09:36] LABS: ALBUMIN 4.2 gm/dL (3.5-5.0); BILIRUBIN,TOTAL 0.7 mg/dL (0.0-1.0); C-REACTIVE PROTEIN 0.8 mg/dL (0.0-0.9); CALCIUM 8.9 mg/dL (8.4-10.2); CREATININE, serum 0.62 (0.52-1.25); TOTAL PROTEIN 7.4 gm/dL (6.4-8.2)
[2020-09-17 09:58] LABS: ERYTHROCYTE SEDIMENTATION RATE 22 mm/hr (0-20)
[2020-09-24 13:54] VITALS: BP 103/73; PULSE 90; TEMP 98.5
[2020-09-24 14:01] LABS: BASO % 0.5 % (0.0-2.0); EOS # 0.1 (0.0-0.7); EOS % 1.9 % (0-4.0); GRAN # 3.6 (1.4-6.5); HEMATOCRIT 37.8 % (37.0-47.0); HEMOGLOBIN 12.8 g/dl (12.5-16.0); LYMPH # 1.6 (1.2-3.4); MEAN CELL VOLUME 84 fl (80.0-100.0); MEAN CORPUSCULAR HEMOGLOBIN 29 pg (27.0-31.0); MEAN CORPUSCULAR HGB CONC 34 g/dl (33.0-37.0); MEAN PLATELET VOLUME 9.6 fl (7.4-10.4); MONO # 0.4 (0.1-0.6); MONO % 7.6 % (1.7-9.3); PLATELET COUNT 314 K/mm3 (130-400); RED BLOOD COUNT 4.48 M/mm3 (4.10-5.30); REDCELL DISTRIBUTION WIDTH-CV 12.5 % (11.5-14.5)
[2020-09-24 14:16] LABS: ALANINE AMINOTRANSFERASE 22 U/L (4-34); ALBUMIN 4.2 gm/dL (3.5-5.0); ALKALINE PHOSPHATASE 87 U/L (50-136); ANION GAP 7 mmol/L (7-16); AST,SGOT 32 U/L (15-37); BILIRUBIN,TOTAL 0.4 mg/dL (0.0-1.0); BLOOD UREA NITROGEN 11 mg/dL (7-17); CALCIUM 8.7 mg/dL (8.4-10.2); CARBON DIOXIDE 28 mmol/L (22-30); CHLORIDE 103 mmol/L (98-107); CREATININE, serum 0.66 (0.52-1.25); GLUCOSE 113 mg/dL (74-106); POTASSIUM 3.9 mmol/L (3.4-5.0); SODIUM 137 mmol/L (137-145); TOTAL PROTEIN 7.3 gm/dL (6.4-8.2)
[2020-09-24 14:17] LABS: C-REACTIVE PROTEIN < 0.5 mg/dL (0.0-0.9)
[2020-09-24 14:26] LABS: ERYTHROCYTE SEDIMENTATION RATE 13 mm/hr (0-20)
[~2020-09-26] VITALS: Ht 152.4 cm; Wt 53.6 kg
[~2020-09-26 15:00] MED LIST changes: +FLONASEALLERGY NS; +MAXIPIME1 GM IV; +MAXIPIME2 GM IV
[2020-09-26 15:25] VITALS: BP 119/73; PULSE 91; TEMP 98.7
== END 2020-09-26 15:46 | disposition home or self-care (01) ==
LOC: EUO 15:00
PROVIDERS: Nurse Practitioner
DX: J47.9 Bronchiectasis, uncomplicated (principal); A31.0 Pulmonary mycobacterial infection; J18.9 Pneumonia, unspecified organism; J90 Pleural effusion, not elsewhere classified
CPT/HCPCS: J0692

== ENCOUNTER 2021-01-11 06:11 | Emergency (ER) | payer BC ==
[~2021-01-11] VITALS: Ht 152.4 cm; Wt 52.7 kg
[2021-01-11 06:18] VITALS: TEMP 97.7
[2021-01-11 06:43] LABS: BASO % 0.3 % (0.0-2.0); EOS # 0.1 (0.0-0.7); EOS % 0.9 % (0-4.0); GRAN # 9.3 (1.4-6.5); HEMATOCRIT 43.2 % (37.0-47.0); HEMOGLOBIN 14.6 g/dl (12.5-16.0); LYMPH # 1.4 (1.2-3.4); LYMPH % 11.9 % (20.0-51.0); MEAN CELL VOLUME 87 fl (80.0-100.0); MEAN CORPUSCULAR HEMOGLOBIN 29 pg (27.0-31.0); MEAN CORPUSCULAR HGB CONC 34 g/dl (33.0-37.0); MEAN PLATELET VOLUME 9.6 fl (7.4-10.4); MONO # 0.6 (0.1-0.6); MONO % 5.6 % (1.7-9.3); PLATELET COUNT 275 K/mm3 (130-400); RED BLOOD COUNT 4.97 M/mm3 (4.10-5.30)
[2021-01-11 06:58] LABS: ALBUMIN 4.4 gm/dL (3.5-5.0); BILIRUBIN,TOTAL 0.5 mg/dL (0.0-1.0); C-REACTIVE PROTEIN 0.6 mg/dL (0.0-0.9); CALCIUM 9.3 mg/dL (8.4-10.2); CREATININE, serum 0.83 (0.52-1.25); POTASSIUM 3.5 mmol/L (3.4-5.0); TOTAL PROTEIN 7.7 gm/dL (6.4-8.2)
[2021-01-11 11:30] VITALS: BP 121/81; PULSE 66
== END 2021-01-11 11:30 | disposition home or self-care (01) ==
LOC: COL.ER 06:11
PROVIDERS: Emergency Medicine
DX: K52.9 Noninfective gastroenteritis and colitis, unspecified (principal); J45.909 Unspecified asthma, uncomplicated; Z32.02 Encounter for pregnancy test, result negative; Z79.51 Long term (current) use of inhaled steroids
CPT/HCPCS: J2060; J2405; J7030; J7120; Q9967

== ENCOUNTER → 2021-05-03 | Outpatient (CLI) | payer BC | LOC: COL.RAD 15:25 | DX: J47.1 Bronchiectasis with (acute) exacerbation (principal); Q99.8 Other specified chromosome abnormalities ==

== ENCOUNTER → 2021-06-10 | Outpatient (CLI) | payer BC | LOC: COL.RAD 13:06 | DX: R91.8 Other nonspecific abnormal finding of lung field (principal) ==

== ENCOUNTER 2021-06-13 08:49 | Emergency (ER) | payer BC ==
[~2021-06-13] VITALS: Ht 152.4 cm; Wt 51.4 kg
[2021-06-13 10:32] LABS: HEMATOCRIT 37.6 % (37.0-47.0); HEMOGLOBIN 12.8 g/dl (12.5-16.0); MEAN CELL VOLUME 87 fl (80.0-100.0); MEAN CORPUSCULAR HEMOGLOBIN 30 pg (27.0-31.0); MEAN CORPUSCULAR HGB CONC 34 g/dl (33.0-37.0); MEAN PLATELET VOLUME 10.2 fl (7.4-10.4); PLATELET COUNT 305 K/mm3 (130-400); RED BLOOD COUNT 4.32 M/mm3 (4.10-5.30)
[2021-06-13 10:42] LABS: ALANINE AMINOTRANSFERASE 33 U/L (4-34); ALKALINE PHOSPHATASE 118 U/L (50-136); ANION GAP 9 mmol/L (7-16); AST,SGOT 37 U/L (15-37); BILIRUBIN,TOTAL 0.8 mg/dL (0.0-1.0); BLOOD UREA NITROGEN 12 mg/dL (7-17); CALCIUM 9.2 mg/dL (8.4-10.2); CARBON DIOXIDE 23 mmol/L (22-30); CHLORIDE 105 mmol/L (98-107); CREATININE, serum 0.56 (0.52-1.25); GLUCOSE 96 mg/dL (74-106); SODIUM 137 mmol/L (137-145); TOTAL PROTEIN 7.8 gm/dL (6.4-8.2)
[2021-06-13 10:53] LABS: TROPONIN-I < 0.012 ng/mL (0.000-0.035)
[2021-06-13 10:58] LABS: BAND 18 % (0-10); LYMPHOCYTE 6 % (20.0-51.0); NEUTROPHILS 76 % (42.0-75.2); PLATELET ESTIMATE NORMAL (NORMAL)
[2021-06-13] MEDS ORDERED: AMOXICILLIN 8751 TAB PO (12:30)
[2021-06-13 13:00] VITALS: BP 115/75; PULSE 98; TEMP 98.9
== END 2021-06-13 13:01 | disposition home or self-care (01) ==
LOC: COL.ER 08:49
PROVIDERS: Emergency Medicine
DX: J18.9 Pneumonia, unspecified organism (principal); E84.9 Cystic fibrosis, unspecified; Z20.822 Contact with and (suspected) exposure to COVID-19
CPT/HCPCS: J2060; Q9967

== ENCOUNTER → 2021-06-25 | Outpatient (CLI) | payer BC | LOC: COL.RAD 14:38 | DX: J18.1 Lobar pneumonia, unspecified organism (principal); R31.29 Other microscopic hematuria ==

== ENCOUNTER → 2022-05-15 | Outpatient (CLI) | payer BC ==
[2022-05-15 11:44] LABS: BASO % 0.4 % (0.0-2.0); EOS # 0.1 K/mm3 (0.0-0.7); EOS % 0.7 % (0.0-4.0); GRAN # 4.9 K/mm3 (1.4-6.5); HEMATOCRIT 42.6 % (37.0-47.0); HEMOGLOBIN 14.4 g/dl (12.5-16.0); LYMPH # 1.5 K/mm3 (1.2-3.4); LYMPH % 21.5 % (20.0-51.0); MEAN CELL VOLUME 89 fl (80.0-100.0); MEAN CORPUSCULAR HEMOGLOBIN 30 pg (27-31); MEAN CORPUSCULAR HGB CONC 34 g/dl (33.0-37.0); MEAN PLATELET VOLUME 9.5 fl (7.4-10.4); MONO # 0.6 K/mm3 (0.1-0.6); MONO % 8.3 % (1.7-9.3); PLATELET COUNT 298 K/mm3 (130-400); REDCELL DISTRIBUTION WIDTH-CV 11.6 % (11.5-14.5)
[2022-05-15 12:01] LABS: BILIRUBIN,TOTAL 1.1 mg/dL (0.2-1.2); CALCIUM 9.3 mg/dL (8.4-10.2); CREATININE, serum 0.71 mg/dL (0.57-1.11); POTASSIUM 3.9 mmol/L (3.5-4.5); TOTAL PROTEIN 7.7 gm/dL (6.2-8.1)
== END ==
LOC: COL.LAB 10:50
DX: A31.0 Pulmonary mycobacterial infection (principal); E84.9 Cystic fibrosis, unspecified; Q99.8 Other specified chromosome abnormalities

== ENCOUNTER 2022-06-06 22:41 | Emergency (ER) | payer BC ==
[~2022-06-06] VITALS: Ht 152.4 cm; Wt 50.0 kg
[2022-06-06 22:46] VITALS: TEMP 99.2
[2022-06-06] MEDS ORDERED: ETHAMBUTOL HYD400 MG PO (23:42)
[2022-06-06] MEDS ORDERED: RIFADIN300 MG PO (23:43)
[2022-06-06] MEDS ORDERED: ZITHROMAX500 M2 PO (23:44)
[2022-06-06] MEDS ORDERED: FLONASE SENSIM9.9 ML (23:45)
[2022-06-07 00:19] LABS: BASO % 0.5 % (0.0-2.0); EOS # 0.1 K/mm3 (0.0-0.7); EOS % 0.7 % (0.0-4.0); GRAN # 5.9 K/mm3 (1.4-6.5); GRAN % 79.3 % (42.2-75.2); HEMATOCRIT 44.3 % (37.0-47.0); HEMOGLOBIN 15.1 g/dl (12.5-16.0); LYMPH # 0.9 K/mm3 (1.2-3.4); MEAN CELL VOLUME 88 fl (80.0-100.0); MEAN CORPUSCULAR HEMOGLOBIN 30 pg (27-31); MEAN CORPUSCULAR HGB CONC 34 g/dl (33.0-37.0); MEAN PLATELET VOLUME 9.4 fl (7.4-10.4); MONO # 0.5 K/mm3 (0.1-0.6); PLATELET COUNT 251 K/mm3 (130-400); RED BLOOD COUNT 5.05 M/mm3 (4.10-5.30); REDCELL DISTRIBUTION WIDTH-CV 11.9 % (11.5-14.5)
[2022-06-07 00:37] LABS: ALBUMIN 4.2 gm/dL (3.5-5.0); BILIRUBIN,TOTAL 0.6 mg/dL (0.2-1.2); C-REACTIVE PROTEIN 1.2 mg/dL (0.00-0.50); CALCIUM 9.4 mg/dL (8.4-10.2); CREATININE, serum 0.82 mg/dL (0.57-1.11); POTASSIUM 3.8 mmol/L (3.5-4.5); TOTAL PROTEIN 7.7 gm/dL (6.2-8.1)
[2022-06-07 02:04] VITALS: BP 106/69; PULSE 95
== END 2022-06-07 02:04 | disposition home or self-care (01) ==
LOC: COL.ER 22:41
PROVIDERS: Nurse Practitioner
DX: J06.9 Acute upper respiratory infection, unspecified (principal); Z20.822 Contact with and (suspected) exposure to COVID-19
CPT/HCPCS: J1885; J7030

== ENCOUNTER → 2022-12-02 | Outpatient (CLI) | payer BC ==
[~2022-12-02] MED LIST changes: +ETHAMBUTOL HYD400 MG PO; +FLONASE SENSIM9.9 ML; +RIFADIN300 MG PO
== END ==
LOC: COL.RAD 08:27
DX: R91.8 Other nonspecific abnormal finding of lung field (principal); R10.30 Lower abdominal pain, unspecified
CPT/HCPCS: Q9967

== ENCOUNTER → 2023-12-10 | Outpatient (REF) | payer BC | LOC: COL.LAB 07:46 → ZCOL.LAB 07:57 | DX: J47.9 Bronchiectasis, uncomplicated (principal); K59.00 Constipation, unspecified ==

== ENCOUNTER 2024-05-24 19:16 | Emergency (ER) | payer BC ==
[~2024-05-24] VITALS: Ht 152.4 cm; Wt 54.5 kg
[2024-05-24 19:19] VITALS: TEMP 100
[2024-05-24] MEDS ORDERED: Albuterol/Ipratropium 3 MG-0.5 MG/3 ML Neb Soln IH ONE (19:45)
[2024-05-24] MEDS ORDERED: methylPREDNISolone Sod Succ 125 MG/2 ML VIAL IV ONE (19:45)
[2024-05-24] MEDS ORDERED: LR 1,000 ML IV ONE (19:45)
[2024-05-24 20:00] LABS: BASO # 0.1 K/mm3 (0.0-0.2); BASO % 0.4 % (0.0-2.0); EOS # 0.1 K/mm3 (0.0-0.7); EOS % 0.7 % (0.0-4.0); GRAN # 10.4 K/mm3 (1.4-6.5); GRAN % 78.5 % (42.2-75.2); HEMATOCRIT 38.4 % (37.0-47.0); LYMPH # 1.8 K/mm3 (1.2-3.4); LYMPH % 13.4 % (20.0-51.0); MEAN CELL VOLUME 88 fl (80.0-100.0); MEAN CORPUSCULAR HEMOGLOBIN 30 pg (27-31); MEAN CORPUSCULAR HGB CONC 34 g/dl (33.0-37.0); MEAN PLATELET VOLUME 9.5 fl (7.4-10.4); MONO # 0.9 K/mm3 (0.1-0.6); MONO % 6.7 % (1.7-9.3); PLATELET COUNT 314 K/mm3 (130-400); RED BLOOD COUNT 4.39 M/mm3 (4.10-5.30); REDCELL DISTRIBUTION WIDTH-CV 12.1 % (11.5-14.5)
[2024-05-24 20:16] LABS: ALBUMIN 3.5 g/dL (3.5-5.0); BILIRUBIN,TOTAL 0.4 mg/dL (0.2-1.2); CALCIUM 9.8 mg/dL (8.4-10.2); CREATININE, serum 0.75 mg/dL (0.57-1.11); POTASSIUM 3.9 mEq/L (3.5-4.5); TOTAL PROTEIN 7.3 g/dl (6.2-8.1)
[2024-05-24 20:54] LABS: URINE APPEARANCE CLEAR (CLEAR/HAZY); URINE BLOOD 1+ (NEGATIVE); URINE COLOR YELLOW (YELLOW); URINE GLUCOSE NEGATIVE (NEGATIVE); URINE KETONE TRACE (NEGATIVE); URINE NITRATE NEGATIVE (NEGATIVE); URINE PROTEIN(semi-quant) NEGATIVE (NEGATIVE)
[2024-05-24] MEDS ORDERED: cefTRIAXone 2 G in Water For Injection,Sterile 20 ML IV ONE (21:30)
[2024-05-24] MEDS ORDERED: PREDNISONE20 MG PO (21:44)
[2024-05-24] MEDS ORDERED: ZITHROMAX Z PA250 MG PO (21:44)
[2024-05-24] MEDS ORDERED: CEFTIN 250250 MG/TAB PO (21:44)
[2024-05-24 21:50] LABS: COLLECTION METHOD CLEAN CATCH
[2024-05-24 23:08] VITALS: BP 99/65; PULSE 105
== END 2024-05-24 23:08 | disposition home or self-care (01) ==
LOC: COL.ER 19:16
PROVIDERS: Family Medicine
DX: J42 Unspecified chronic bronchitis (principal); J84.9 Interstitial pulmonary disease, unspecified
CPT/HCPCS: J0696; J2919; J7120